=== PATIENT | female | born 1995 | race African-American/Black ===

== ENCOUNTER 2018-08-02 18:36 | Emergency (ER) | payer OTHER ==
[~2018-08-02] VITALS: Ht 175.3 cm; Wt 90.7 kg
[~2018-08-02 18:36] MED LIST: MACROBID 100 M100 M1 PO; NOHOMEMEDICATIONS
[2018-08-02] MEDS ORDERED: NAPROSYN500 MG PO (20:20)
[2018-08-02 20:39] VITALS: BP 146/97
== END 2018-08-02 20:41 | disposition home or self-care (01) ==
LOC: ER 18:36
DX: N64.4 Mastodynia (principal)

== ENCOUNTER 2018-08-06 19:29 | Emergency (ER) | payer OTHER ==
[~2018-08-06] VITALS: Ht 175.3 cm; Wt 90.7 kg
[2018-08-06 19:29] VITALS: BP 141/97
[~2018-08-06 19:29] MED LIST changes: +NAPROSYN500 MG PO
[2018-08-06] MEDS ORDERED: MOBIC15 MG PO (20:54)
[2018-08-06] MEDS ORDERED: VALIUM5 MG PO (20:54)
== END 2018-08-06 21:17 | disposition home or self-care (01) ==
LOC: ER 19:29
DX: R51 Headache (principal); M25.562 Pain in left knee; M54.2 Cervicalgia; V49.9XXA Car occupant (driver) (passenger) injured in unspecified traffic accident, initial encounter; Y93.89 Activity, other specified; Y92.89 Other specified places as the place of occurrence of the external cause; Y99.8 Other external cause status

== ENCOUNTER 2018-11-09 19:53 | Emergency (ER) | payer OTHER ==
[~2018-11-09] VITALS: Ht 175.3 cm; Wt 90.7 kg
[~2018-11-09 19:53] MED LIST changes: +MOBIC15 MG PO; +VALIUM5 MG PO
[2018-11-09 21:21] LABS: URINE BILIRUBIN NEGATIVE (Negative); URINE BLOOD NEGATIVE (Negative); URINE CLARITY CLEAR; URINE COLOR YELLOW; URINE GLUCOSE-RANDOM* NEGATIVE (Negative); URINE KETONES NEGATIVE (Negative); URINE LEUKOCYTES-REFLEX NEGATIVE (Negative); URINE NITRITE-REFLEX NEGATIVE (Negative); URINE PROTEIN (DIPSTICK) NEGATIVE (Negative); URINE SPECIFIC GRAVITY 1.015 (1.005-1.035); URINE UROBILINOGEN 0.2 E.U./dl (0.2-1.0)
[2018-11-09] MEDS ORDERED: DIFLUCAN150 MG PO (21:27)
[2018-11-09 21:58] VITALS: BP 142/91
== END 2018-11-09 21:59 | disposition home or self-care (01) ==
LOC: ER 19:53
PROVIDERS: Physician Assistant
DX: B37.9 Candidiasis, unspecified (principal)